=== PATIENT | female | born 1960 | race Caucasian/White ===

== ENCOUNTER 2024-01-28 22:25 | Inpatient (IN) | payer OTHER, SELFPAY ==
[2024-01-28 23:23] VITALS: BMI 22.8
[2024-01-28 23:24] VITALS: BP 146/70; PULSE 60; RESP 17; TEMP 36.9; O2SAT 96
--- NOTE | 2024-01-29 | ECG_ITS ---
Test Reason : R/O QTc prolongation Blood Pressure : / mmHG Vent. Rate : 057 BPM Atrial Rate : 057 BPM P-R Int : 188 ms QRS Dur : 074 ms QT Int : 414 ms P-R-T Axes : 018 012 001 degrees QTc Int : 402 ms Sinus bradycardia with sinus arrhythmia with ventricular escape complexes Nonspecific ST abnormality Abnormal ECG No previous ECGs available Referred By: Kalie Kim Electronically Signed By:
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
--- NOTE | 2024-01-29 03:33 | PC.NURSE ---
Patient arrived to from outside hospital at 2300, skin check performed, complains of pain to buttocks, buttocks assessed by female RN who states redness but no breakdown. Pleasant, calm, cooperative, safe on unit.
[2024-01-29 08:00] VITALS: BP 102/58; PULSE 56; RESP 16; TEMP 36.9; O2SAT 97
[2024-01-29 08:30] VITALS: BP 102/58
[2024-01-29] MEDS: Apixaban 5 MG TABLET PO ×2 (08:30→20:29)
[2024-01-29] MEDS: lisinopriL 10 MG TABLET PO (08:30)
[2024-01-29] MEDS: Famotidine 20 MG TABLET PO ×2 (08:31→20:29)
[2024-01-29] MEDS: Cyanocobalamin (Vitamin B-12) 1,000 MCG TABLET 1000 MCG PO (08:31)
[2024-01-29] MEDS: Ferrous Sulfate 324 MG TABLET.DR PO ×3 (08:31→20:29)
--- NOTE | 2024-01-29 14:40 | PC.NURSE ---
pt paranoid with AH and delusions. reports people are listening to her through the music in the corona. She stated I dont know why I am here I have an embolism and thats all
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
[2024-01-29] MEDS: Buprenorphine/Naloxone 8/2 mg FILM 1 FILM SUBLINGUAL (15:15)
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
[2024-01-29 20:00] VITALS: BP 103/54; PULSE 69; RESP 18; TEMP 36.4; O2SAT 96
[2024-01-29] MEDS: OLANZapine 5 MG TABLET PO (20:29)
[2024-01-29] MEDS: Buprenorphine/Naloxone 2/0.5mg TAB.SUBL 1 TAB SUBLINGUAL (20:29)
[2024-01-30 08:06] LABS: Estimated Average Glucose 114 mg/dL; Hemoglobin A1c % 5.6 % (<6.0)
[2024-01-30 08:12] VITALS: BP 114/63; PULSE 68; RESP 16; TEMP 36.7; O2SAT 95
[2024-01-30 08:19] LABS: Cholesterol 228 mg/dL (<200); HDL Cholesterol 36 mg/dL (>40); LDL Cholesterol Calculated 163 mg/dL (<100); Triglycerides 147 mg/dL (<150)
[2024-01-30] MEDS: Buprenorphine/Naloxone 2/0.5mg TAB.SUBL 1 TAB SUBLINGUAL ×2 (08:30→20:08)
[2024-01-30 08:32] VITALS: BP 114/63
[2024-01-30] MEDS: Cyanocobalamin (Vitamin B-12) 1,000 MCG TABLET 1000 MCG PO (08:32)
[2024-01-30] MEDS: Ferrous Sulfate 324 MG TABLET.DR PO (08:32)
[2024-01-30] MEDS: Famotidine 20 MG TABLET PO ×2 (08:32→20:08)
[2024-01-30] MEDS: lisinopriL 10 MG TABLET PO (08:32)
[2024-01-30] MEDS: Apixaban 5 MG TABLET PO ×2 (08:32→20:08)
[2024-01-30 08:35] LABS: Free T4 (Free Thyroxine) 0.93 ng/dL (0.71-1.85)
[2024-01-30 08:46] LABS: Folate 7.4 ng/mL (> or = 4.0); Vitamin B12 682 pg/mL (200-900)
--- NOTE | 2024-01-30 18:59 | PC.NURSE ---
contacted nursing supv via [employer] text to have staff come to unit complete EKG. Text/phone calls have gone unanswered. Will follow-up with cardiology in the morning.
[2024-01-30 20:00] VITALS: BP 110/56; PULSE 87; RESP 18; TEMP 36.3; O2SAT 98
[2024-01-30] MEDS: OLANZapine 5 MG TABLET PO (20:08)
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
[2024-01-31] MEDS: Acetaminophen 325 MG TABLET 650 MG PO ×2 (04:17→16:08)
[2024-01-31 08:56] VITALS: BP 111/59; PULSE 98; RESP 16; TEMP 36.9; O2SAT 97
[2024-01-31 08:59] VITALS: BP 111/62
[2024-01-31] MEDS: Buprenorphine/Naloxone 2/0.5mg TAB.SUBL 1 TAB SUBLINGUAL ×2 (08:59→20:46)
[2024-01-31] MEDS: Apixaban 5 MG TABLET PO ×2 (08:59→20:46)
[2024-01-31] MEDS: lisinopriL 10 MG TABLET PO (08:59)
[2024-01-31] MEDS: Cyanocobalamin (Vitamin B-12) 1,000 MCG TABLET 1000 MCG PO (09:00)
[2024-01-31] MEDS: Ferrous Sulfate 324 MG TABLET.DR PO (09:00)
[2024-01-31] MEDS: Famotidine 20 MG TABLET PO ×2 (09:00→20:46)
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
[2024-01-31 20:00] VITALS: BP 108/58; PULSE 70; RESP 17; TEMP 36.9; O2SAT 96
[2024-01-31] MEDS: OLANZapine 5 MG TABLET PO (20:46)
[2024-01-31] MEDS: Nystatin/Triamcinolone Cream 15 GM TUBE 1 APPL TOPICAL (20:48)
[2024-02-01 07:45] VITALS: BP 98/61; PULSE 63; RESP 15; TEMP 36.6; O2SAT 97
[2024-02-01] MEDS: Apixaban 5 MG TABLET PO ×2 (08:18→21:19)
[2024-02-01] MEDS: Buprenorphine/Naloxone 2/0.5mg TAB.SUBL 1 TAB SUBLINGUAL ×2 (08:19→21:19)
[2024-02-01] MEDS: Famotidine 20 MG TABLET PO ×2 (08:19→21:19)
[2024-02-01 10:52] VITALS: BP 121/57
[2024-02-01] MEDS: lisinopriL 10 MG TABLET PO (10:52)
--- NOTE | 2024-02-01 10:54 | PC.NURSE ---
Pt.'s BP was 121/57. This commercial real estate underwriter texted Dr. Flores, via [employer], and he stated to give the lisinopril.
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
[2024-02-01] MEDS: Fluconazole 150 MG TABLET PO (16:01)
[2024-02-01 20:00] VITALS: BP 113/66; PULSE 68; RESP 20; TEMP 36.4; O2SAT 98
[2024-02-01] MEDS: OLANZapine 7.5 MG TABLET 15 MG PO (21:22)
[2024-02-02] MEDS: Acetaminophen 325 MG TABLET 650 MG PO (00:10)
[2024-02-02 08:00] VITALS: BP 104/58; PULSE 56; RESP 18; TEMP 37.1; O2SAT 98
[2024-02-02 08:28] VITALS: BP 104/58
[2024-02-02] MEDS: lisinopriL 10 MG TABLET PO (08:28)
[2024-02-02] MEDS: Buprenorphine/Naloxone 2/0.5mg TAB.SUBL 1 TAB SUBLINGUAL (08:29)
[2024-02-02] MEDS: Famotidine 20 MG TABLET PO (08:29)
[2024-02-02] MEDS: Apixaban 5 MG TABLET PO (08:29)
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
== END 2024-02-02 11:45 | disposition home or self-care (01) | DRG 885 ==
PROVIDERS: Psychiatry & Neurology Psychiatry; Admitting Provider Psychiatry & Neurology Psychiatry; Visit Provider Clinical Nurse Specialist Psychiatric/Mental Health, Adult
DX: F20.0 Paranoid schizophrenia (principal); F11.20 Opioid dependence, uncomplicated; Z59.02 Unsheltered homelessness; I10 Essential (primary) hypertension; G89.29 Other chronic pain; M34.9 Systemic sclerosis, unspecified; K21.9 Gastro-esophageal reflux disease without esophagitis; M79.7 Fibromyalgia; F43.10 Post-traumatic stress disorder, unspecified; F17.210 Nicotine dependence, cigarettes, uncomplicated; Z71.6 Tobacco abuse counseling; Z86.718 Personal history of other venous thrombosis and embolism; Z86.711 Personal history of pulmonary embolism; Z79.01 Long term (current) use of anticoagulants; Z79.899 Other long term (current) drug therapy
CPT/HCPCS: 36415; 80061; 82607; 82746; 83036; 84439; 84443; 93005

== ENCOUNTER → 2024-01-28 22:25 | Outpatient (BNV) | payer MEDICARE, SELFPAY | PROVIDERS: Admitting Provider Psychiatry & Neurology Psychiatry; Visit Provider Clinical Nurse Specialist Psychiatric/Mental Health, Adult | DX: F43.11 Post-traumatic stress disorder, acute (principal) | CPT/HCPCS: 90792; 99231; 99232; 99238 ==

== ENCOUNTER → 2024-01-28 22:25 | Outpatient (BNV) | payer MEDICARE, SELFPAY | PROVIDERS: Admitting Provider Psychiatry & Neurology Psychiatry; Visit Provider Student in an Organized Health Care Education/Training Program | DX: Z02.2 Encounter for examination for admission to residential institution (principal) | CPT/HCPCS: 99429 ==